=== PATIENT | female | born 2000 | race Caucasian/White ===

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

== ENCOUNTER 2023-03-05 23:00 | Emergency (ER) | payer OTHER ==
[2023-03-05 23:55] LABS: MONO NEGATIVE CONTROL ZONE White (Negative) (White); MONO POSITIVE CONTROL Pink Line (Positive) (PINK/RED); Mononucleosis NEGATIVE (NEGATIVE)
[2023-03-06] MEDS ORDERED: predniSONE 10 MG TAB ONE (00:29)
[2023-03-06] MEDS ORDERED: diphenhydrAMINE 25 MG CAP ONE (00:29)
[2023-03-06] MEDS ORDERED: Famotidine 20 MG TAB ONE (00:29)
[2023-03-06] MEDS ORDERED: predniSONE 20 MG TAB ONE (00:29)
== END 2023-03-06 00:56 | disposition home or self-care (01) ==
LOC: MADERS 23:00
DX: T78.40XA Allergy, unspecified, initial encounter (principal); J03.90 Acute tonsillitis, unspecified; Z76.0 Encounter for issue of repeat prescription
CPT/HCPCS: 86308; 87081; 87430; 99283; J7512